=== PATIENT | male | born 1940 | race Caucasian/White ===

== ENCOUNTER → 2020-07-31 | Outpatient (CLI) | payer OTHER, MEDICARE ==
[~2020-07-31] MED LIST: ACTOS15 MG PO; ADULT LOW DOSE81 MG PO; AMARYL2 MG PO; CITRUCEL CAPLET1 TAB PO; CRESTOR5 MG PO; DIOVAN HCT 1601 EACH PO; FISHOIL PO; FLAX OIL1000 MG PO; FLEXERIL PO; GLUCOPHAGE500 MG PO; NORVASC10 MG PO; PERCOCET 7.5-51 EACH PO; PRILOSEC 10MG C10 M1 PO; VITAMIN C + RO500 MG PO
== END ==
LOC: LAB 08:22
PROVIDERS: ATTEND Anesthesiology
DX: Z01.812 Encounter for preprocedural laboratory examination (principal); Z20.822 Contact with and (suspected) exposure to COVID-19